=== PATIENT | female | born 1985 | race Caucasian/White ===

== ENCOUNTER 2017-05-25 14:40 | Emergency (ER) | payer MEDICAID, SELFPAY ==
[2017-05-25 14:41] VITALS: BP 124/67; PULSE 95; RESP 20; TEMP 37; O2SAT 95; BMI 29.2
--- NOTE | 2017-05-25 14:52 | CT_ITS ---
CT head/brain wo con Ordering Physician: Talat Gray MD : 31 years: Female HISTORY: ITS.REASON: seizurelike activity . No ongoing nor recent history of seizures TECHNIQUE: Routine axial CT head without contrast. Axial brain and bone windows performed and reviewed. COMPARISON :None FINDINGS No acute intracranial findings. No hemorrhage. No mass. No mass effect. No extra-axial nor subdural collection. The ventricles appear normal. The arredondo and white matter patterns interface appears satisfactory. No mass lesion or mass effect evident. No significant asymmetry. Posterior fossa appears normal. The pineal gland is upper normal in size. With Low-density centrally possibly reflecting a small underlying pineal cyst. Normal variant The CT bone Windows note a tiny 4 mm AP x 2.4 mm with osseous protuberance from the anterior right skull near the coronal suture. Most likely area of benign frontal hyperostosis seen on axial image 33. Unlikely early hyperostosis related to meningioma. No associated mass effect or lesion otherwise here. If there is indeed defined seizure activity initial onset a follow-up postcontrast study would be suggested. MR is more sensitive and would be preferred Incidental right maxillary sinusitis diffuse mild to moderate mucosal thickening right maxillary sinus. Mild ethmoid sinusitis also noted on right greater than left.. Engorgement nasal turbinates with deviation nasal septum to the right IMPRESSION: ......... 1. No acute intracranial findings. No hemorrhage. No mass lesion or mass effect evident. No subdural collection 2. Incidental note Tiny 4 mm AP x 2.4 mm height osseous protuberance on inner table anterior/superior aspect of skull.- Most likely a merely tiny area of developing hyperostosis. Unlikely more significant feature. It *If this patient has new onset of seizures consider follow-up postcontrast study MR which is significantly more sensitive to early abnormalities. 3. Incidental right maxillary sinusitis, with mild ethmoid sinusitis right greater than left.
--- NOTE | 2017-05-25 14:52 | CT_ITS ---
CT cervical spine wo con Ordering Physician: Talat Gray MD Patient Age: 31 years: Female HISTORY: ITS.REASON: possible seizure No ongoing nor recent history of seizures TECHNIQUE: Helical CT scanning performed of the cervical spine with sagittal and coronal and axial reconstructions on CT workstation. COMPARISON :None available FINDINGS The cervical vertebral bodies are intact with no fracture nor subluxation. The disc spaces are well-maintained throughout the facets appear intact with normal relationships.. C1-C2 relationships appear normal. . Nonspecific straightening cervical spine most likely positional although can be reflection of muscle spasm. Prevertebral soft tissues appear normal. . Survey of soft tissues of neck: Thyroid mildly enlarged bilaterally with \scattered thyroid nodules throughout. Possible developing multinodular goiter. Most evident thyroid nodule measuring 9 mm at the posterior right lobe. Incidental note 7.5 mm small air collection right paratracheal region, at the very base the neck axial image 74. Curious feature. Most likely incidental paratracheal air cyst... Trachea itself appears intact with no additional air. Otherwise possibly could reflect Questionable reflects minimal slight upper extension of lung/left formation from blebs at medial right lung apex. Esophagus upper normal thickness. But with no defect evident Apices are included with no pneumothorax, but would note COPD changes, with scattered small blebs. Early COPD changes. Likely significant history of smoking with this appearance. Scattered moderate size nodes throughout the neck. No dominant mass evident on this noncontrast study. Right maxillary sinus with moderate diffuse mucosal thickening, retention cyst at the floor the right maxillary sinus. Cannot exclude a small air-fluid level. Mucosal thickening partially occludes the ostia and infundibulum on the right ostiomeatal complex. . Streak artifact from metallic fillings obscure the teeth question dental caries involving posterior molars. Clinical correlation required. Dental follow-up is suggested ----IMPRESSION-------- 1. C-spine intact. No fracture nor subluxation. 2. Other minor observations in text. ... Tiny 7 mm air collection right paratracheal region suspect a small peritracheal air cyst. No free air otherwise intact ... Scattered moderate most likely reactive nodes throughout the neck ... Right maxillary sinusitis: moderate mucosal thickening retention cyst. ... Thyroid mildly enlarged with probable scattered nodules throughout
--- NOTE | 2017-05-25 15:36 | PC.NURSE ---
1532- WET END TESTER STATES PT HAD ANOTHER SEIZURE LASTED 45 SECONDS. PT WAS CONTRACTED AND FOAMING AT THE MOUTH.
[2017-05-25 15:44] LABS: Basophils # 0.1 K/mm3 (0-0.2); Basophils % 0.5 % (0.1-2.0); Eosinophils # 0.1 K/mm3 (0.0-0.4); Eosinophils % 1.1 % (0.1-12.0); Hematocrit 43.3 % (37.0-47.0); Hemoglobin 14.1 g/dL (12.2-16.2); Lymphocytes # 1.8 K/mm3 (0.7-4.5); Lymphocytes % 18.8 K/mm3 (10-50); Mean Corpuscular HGB Conc 32.5 g/dL (31.8-35.4); Mean Corpuscular Volume 89.3 fl (81-99); Mean Platelet Volume 7.3 fl (7.4-10.4); Monocytes # 0.3 K/mm3 (0.1-1.0); Monocytes % 3.4 % (1.7-9.3); Neutrophils # 7.2 K/mm3 (1.8-7.8); Neutrophils % 76.2 % (37.0-80.0); Platelet Count 311 K/mm3 (142-424); Red Blood Count 4.85 M/mm3 (4.20-5.40); Red Cell Distribution Width 13.1 % (11.5-17.5); White Blood Count 9.5 K/mm3 (4.8-10.8)
[2017-05-25 15:52] LABS: Alanine Aminotransferase 30 U/L (12-78); Albumin Level 4.3 gm/dL (3.4-5.0); Albumin/Globulin Ratio 1.2 (1.1-1.8); Alkaline Phosphatase 96 U/L (46-116); Anion Gap 10.5 mEq/L (5-15); Aspartate Amino Transferase 10 U/L (15-37); Bilirubin,Total 0.3 mg/dL (0.2-1.0); Blood Urea Nitrogen 9 mg/dL (7-18); Calcium 8.8 mg/dL (8.5-10.1); Carbon Dioxide 28 mmol/L (21.0-32.0); Chloride 104 mmol/L (98-107); Creatinine Clearance Estimated 127 mL/min (0-300); Creatinine,Serum 0.78 mg/dL (0.55-1.02); Estimated Glomerular Filt Rate 86 ml/min (>60); GFR (African American) 104 ML/MIN (>60); Globulin 3.5 gm/dl (1.3-3.2); Glucose 128 mg/dL (74-106); Potassium 3.5 mmoL/L (3.5-5.1); Sodium 139 mmol/L (136-145); Total Protein,Serum 7.8 gm/dL (6.4-8.2)
[2017-05-25 17:05] LABS: Microscopic, Urine URINE MICROSCOPIC (MICROSCOPIC)
[2017-05-25 17:08] LABS: Appearance,Urine SL CLOUDY (Clear); Bilirubin,Urine Negative (Negative); Blood, Urine Negative (Negative); Color,Urine YELLOW (Yellow); Glucose,Urine (UA) Negative (Negative); Ketones,Urine Negative (Negative); Leukocyte Esterase,Urine Negative (Negative); Nitrate,Urine Negative (Negative); Protein,Urine Negative (Negative); Specific Gravity, Urine 1.015 (1.005-1.030); Urobilinogen,Urine 0.2 EU/dl (0.2)
[2017-05-25 17:15] LABS: Amphetamine/Metha Screen,Urine Negative ng/mL (<1000); Barbiturates Screen,Urine Negative ng/mL (<200); Benzodiazepines Screen,Urine Negative ng/mL (200); Cannabinoid Screen,Urine Negative ng/mL (<50); Cocaine Screen,Urine Negative ng/g (<300); Methadone Screen,Urine Negative ng/mL (<300); Opiate Screen,Urine Negative ng/mL (<300); Phencyclidine Screen,Urine Negative ng/mL (<25)
--- NOTE | 2017-05-25 17:35 | [facility]H.EDSEIZ ---
ED Disposition Clinical Impression: Epileptic seizure Qualifiers: Epilepsy type: unspecified Disposition: Home, Self-Care Condition on Discharge: Good Instructions: DI for Seizure Disorder -- Adult, DI for Seizure (Not Epilepsy/Seizure Disorder), DI for Seizure Disorder -- Child Additional Instructions: call placed to neurology Referrals: Bryn Ann MD [Primary Care Provider] - - Critical Care Critical Care Time: No Attestation: On 05/25/17, the high probability of a clinically significant, sudden or life threatening deterioration of the following system(s) required my full and direct attention, intervention and personal management. The time I documented below is in addition to time spent performing reported procedures but includes the following listed in this critical care notation. Medical Decision Making Vital Signs: 05/25/17 14:41 Temperature 98.6 F Temperature Source Oral Pulse Rate [Right Radial] 95 H Respiratory Rate 20 Blood Pressure [Right Arm] 124/67 Blood Pressure Mean [Right Arm] 86 Blood Pressure Source [Right Arm] Automatic Cuff Blood Pressure Position [Right Arm] Sitting 02 Sat by Pulse Oximetry 95 Oxygen Delivery Method Room Air - Lab Data Lab Results 05/25/17 15:25: WBC 9.5, RBC 4.85, Hgb 14.1, Hct 43.3, MCV 89.3, MCH 29.0, MCHC 32.5, RDW 13.1, Plt Count 311, MPV 7.3 L, Neut % (Auto) 76.2, Lymph % (Auto) 18.8, [place] % (Auto) 3.4, Eos % (Auto) 1.1, Baso % (Auto) 0.5, Neut # (Auto) 7.2, Lymph # (Auto) 1.8, [place] # (Auto) 0.3, Eos # (Auto) 0.1, Baso # (Auto) 0.1 05/25/17 15:25: Sodium 139, Potassium 3.5, Chloride 104, Carbon Dioxide 28, Anion Gap 10.5, BUN 9, Creatinine 0.78, Estimated Creat Clear 127, Estimated GFR 86, Est GFR ( Amer) 104, Glucose 128 H, Calcium 8.8, Total Bilirubin 0.3, AST 10 L, ALT 30, Alkaline Phosphatase 96, Total Protein 7.8, Albumin 4.3, Globulin 3.5 H, Albumin/Globulin Ratio 1.2 05/25/17 17:00: Urine Color Yellow, Urine Appearance Sl cloudy, Urine pH 7.0, Ur Specific [place] 1.015, Urine Protein Negative, Urine Glucose (UA) Negative, Urine Ketones Negative, Urine Blood Negative, Urine Nitrate Negative, Urine Bilirubin Negative, Urine Urobilinogen 0.2, Ur Leukocyte Esterase Negative, Ur Squamous Epith Cells 3-5 05/25/17 17:00: Urine Opiates Screen Negative, Ur Barbituates Screen Negative, Ur Phencyclidine Scrn Negative, Ur Amphetamines Screen Negative, U Methamphetamines Scrn Negative, U Benzodiazepines Scrn Negative, Urine Cocaine Screen Negative, U Marijuana (THC) Screen Negative Result diagrams: 05/25/17 15:25 05/25/17 15:25 Orders (Tests/Meds): ED MEDICATIONS Discontinued Medications Generic Name Dose Route Start Last Admin Trade Name Freq PRN Reason Stop Dose Admin Phenytoin Sodium 1,000 mg/ 120 mls @ 300 mls/hr 05/25/17 15:38 05/25/17 15:55 Sodium Chloride IV 05/25/17 16:01 300 mls/hr ONCE ONE Administration - Chun Inquiry Pt receiving controlled substance: No Comment: I discussed case with Dr cameron at [facility], he does not feel that shes Seizures HPI - General Chief Complaint: Seizure Stated Complaint: seizure Mode of Arrival: Family Vehicle Limitations: No Limitations Description of Symptoms (Recalled from ER Triage Doc. by RN): pt significant other states that she was at a gas station around 1400 and she went down and her arms were shaking, body was contracted, head bent backwads and pt was foaming at the mouth. this episode lasted roughly 4-5 minutes. pt has been disoriented for about 30 minutes. - History of Present Illness MD complaint: possible seizure - Related Data Home Medications Medication Instructions Recorded Confirmed Buprenorphine HCl/Naloxone HCl 1 each SL DAILY 05/25/17 05/25/17 [Suboxone 4 mg-1 mg Sl Film] Gabapentin [Gabapentin 300mg Cap] 300 mg PO DAILY 05/25/17 05/25/17 Previous Rx's Medication Instructions Recorded levETIRAcetam [Keppra 500mg tablet] 500 mg P
--- NOTE | 2017-05-25 17:38 | ED_ITS ---
ED Disposition Clinical Impression: Epileptic seizure Qualifiers: Epilepsy type: unspecified Disposition: Home, Self-Care Condition on Discharge: Good Instructions: DI for Seizure Disorder -- Adult, DI for Seizure (Not Epilepsy/ Seizure Disorder), DI for Seizure Disorder -- Child Additional Instructions: call placed to neurology Referrals: Bryn Ann MD [Primary Care Provider] - - Critical Care Critical Care Time: No Attestation: On 05/25/17, the high probability of a clinically significant, sudden or life threatening deterioration of the following system(s) required my full and direct attention, intervention and personal management. The time I documented below is in addition to time spent performing reported procedures but includes the following listed in this critical care notation. Medical Decision Making Vital Signs: 05/25/17 14:41 Temperature 98.6 F Temperature Source Oral Pulse Rate [Right Radial] 95 H Respiratory Rate 20 Blood Pressure [Right Arm] 124/67 Blood Pressure Mean [Right Arm] 86 Blood Pressure Source [Right Arm] Automatic Cuff Blood Pressure Position [Right Arm] Sitting 02 Sat by Pulse Oximetry 95 Oxygen Delivery Method Room Air - Lab Data Lab Results 05/25/17 15:25: WBC 9.5, RBC 4.85, Hgb 14.1, Hct 43.3, MCV 89.3, MCH 29.0, MCHC 32.5, RDW 13.1, Plt Count 311, MPV 7.3 L, Neut % (Auto) 76.2, Lymph % (Auto) 18.8, [place] % (Auto) 3.4, Eos % (Auto) 1.1, Baso % (Auto) 0.5, Neut # (Auto) 7.2 , Lymph # (Auto) 1.8, [place] # (Auto) 0.3, Eos # (Auto) 0.1, Baso # (Auto) 0.1 05/25/17 15:25: Sodium 139, Potassium 3.5, Chloride 104, Carbon Dioxide 28, Anion Gap 10.5, BUN 9, Creatinine 0.78, Estimated Creat Clear 127, Estimated GFR 86, Est GFR ( Amer) 104, Glucose 128 H, Calcium 8.8, Total Bilirubin 0.3, AST 10 L, ALT 30, Alkaline Phosphatase 96, Total Protein 7.8, Albumin 4.3, Globulin 3.5 H, Albumin/Globulin Ratio 1.2 05/25/17 17:00: Urine Color Yellow, Urine Appearance Sl cloudy, Urine pH 7.0, Ur Specific [place] 1.015, Urine Protein Negative, Urine Glucose (UA) Negative, Urine Ketones Negative, Urine Blood Negative, Urine Nitrate Negative, Urine Bilirubin Negative, Urine Urobilinogen 0.2, Ur Leukocyte Esterase Negative, Ur Squamous Epith Cells 3-5 05/25/17 17:00: Urine Opiates Screen Negative, Ur Barbituates Screen Negative, Ur Phencyclidine Scrn Negative, Ur Amphetamines Screen Negative, U Methamphetamines Scrn Negative, U Benzodiazepines Scrn Negative, Urine Cocaine Screen Negative, U Marijuana (THC) Screen Negative Result diagrams: 05/25/17 15:25 05/25/17 15:25 Orders (Tests/Meds): ED MEDICATIONS Discontinued Medications Generic Name Dose Route Start Last Admin Trade Name Freq PRN Reason Stop Dose Admin Phenytoin Sodium 1,000 mg/ 120 mls @ 300 mls/hr 05/25/17 15:38 05/25/17 15:55 Sodium Chloride IV 05/25/17 16:01 300 mls/hr ONCE ONE Administration - Chun Inquiry Pt receiving controlled substance: No Comment: I discussed case with Dr cameron at [facility], he does not feel that shes Seizures HPI - General Chief Complaint: Seizure Stated Complaint: seizure Mode of Arrival: Family Vehicle Limitations: No Limitations Description of Symptoms (Recalled from ER Triage Doc. by RN): pt significant other states that she was at a gas station around 1400 and she went down and her arms were shaking, body was contracted, head bent b
[2017-05-25 18:49] VITALS: BP 111/70; PULSE 90; RESP 16; TEMP 36.9; O2SAT 96
== END 2017-05-25 18:51 | disposition home or self-care (01) ==
PROVIDERS: Emergency Provider Family Medicine; Family Provider Internal Medicine Adolescent Medicine; PCP Internal Medicine Adolescent Medicine
DX: G40.909 Epilepsy, unspecified, not intractable, without status epilepticus (principal); F17.210 Nicotine dependence, cigarettes, uncomplicated; Z88.0 Allergy status to penicillin; Z88.2 Allergy status to sulfonamides
CPT/HCPCS: 36415; 70450; 72125; 80053; 80305; 81001; 85025; 93041; 96365; 99282

== ENCOUNTER 2021-11-27 16:56 | Emergency (ER) | payer OTHER, SELFPAY ==
--- NOTE | 2021-11-27 17:16 | PC.NURSE ---
pt having r lower side/abdomen pain since yesterday. VSS bp 118/57, 89HR, 100 RA 98.0 temp. PT aware that at this time we have no beds available and will wait in the lobby until one is available. with pt.
[2021-11-27 17:33] VITALS: BMI 24.0
[2021-11-27 18:04] LABS: Microscopic, Urine URINE MICROSCOPIC (MICROSCOPIC)
[2021-11-27 18:11] LABS: Appearance,Urine SL CLOUDY (Clear); Bilirubin,Urine Negative (Negative); Blood, Urine 1+ (Negative); Color,Urine YELLOW (Yellow); Glucose,Urine (UA) Negative (Negative); Ketones,Urine Negative (Negative); Leukocyte Esterase,Urine 3+ (Negative); Nitrate,Urine POSITIVE (Negative); PH,Urine 5.5 (5.0-8.5); Protein,Urine 1+ (Negative); Urobilinogen,Urine 0.2 EU/dl (0.2)
[2021-11-27 18:28] VITALS: BP 129/69; PULSE 117; RESP 18; TEMP 37.4; O2SAT 99; BMI 24.0
[2021-11-27 18:37] LABS: WBC,Urine 50-100 #/hpf (0-3)
[2021-11-27 18:39] LABS: Bacteria,Urine 1+ /lpf; Yeast,Urine Occasional /lpf
--- NOTE | 2021-11-27 18:45 | PC.NURSE ---
Pt states she just stopped taking her subaxone for 2 days after tapering down for 2 weeks.
--- NOTE | 2021-11-27 18:49 | PC.NURSE ---
calling [facility] to get records, spoke with Rahat SantosObstetrics/Gynecology Nurse
--- NOTE | 2021-11-27 19:18 | CT_ITS ---
PROCEDURE INFORMATION: Exam: CT Abdomen And Pelvis With Contrast Exam date and time: 11/27/2021 7:51 PM Age: 36 years old Clinical indication: Abdominal pain; Acute; Additional info: Right side/abdomen pain TECHNIQUE: Imaging protocol: Computed tomography of the abdomen and pelvis with contrast. Radiation optimization: All CT scans at this facility use at least one of these dose optimization techniques: automated exposure control; mA and/or kV adjustment per patient size (includes targeted exams where dose is matched to clinical indication); or iterative reconstruction. Contrast material: ISOVUE; Contrast volume: 75 ml; Contrast route: IV; COMPARISON: No relevant prior studies available. FINDINGS: Lungs: Clear basilar lung parenchyma. Pleural spaces: No pleural fluid. Heart: Normal heart size. Liver: Normal. No mass. Gallbladder and bile ducts: Exam demonstrates features of prior cholecystectomy. No biliary tree dilation or high-density retained stones appreciated. Pancreas: Normal. No ductal dilation. Spleen: Single calcification noted in the spleen. Spleen measures 11.8 cm. Adrenal glands: Normal. No mass. Kidneys and ureters: There is heterogeneous enhancement of the right kidney. There is no evidence of renal obstruction. No calculus visible on either side. Stomach and bowel: Unremarkable. No obstruction. No mucosal thickening. Appendix: Normal appendix is confirmed. Intraperitoneal space: Unremarkable. No free air. No significant fluid collection. Vasculature: Unremarkable. No abdominal aortic aneurysm. Lymph nodes: Unremarkable. No enlarged lymph nodes. Urinary bladder: Unremarkable as visualized. Reproductive: Recently ruptured right ovarian follicle. Physiologic appearance of the uterus and left ovary. Bones/joints: Unremarkable. No acute fracture. Soft tissues: Unremarkable. IMPRESSION: Exam demonstrates findings of acute pyelonephritis involving the right kidney. There is no evidence intrarenal or perirenal abscess.
[2021-11-27 19:48] LABS: HCG Qualitative, Serum Negative (Negative)
--- NOTE | 2021-11-27 22:05 | PC.NURSE ---
at updating pt and family on POC
[2021-11-27 22:08] LABS: Chloride 101 mmol/L (98-107); Potassium 3.3 mmoL/L (3.5-5.1); Sodium 138 mmol/L (136-145)
[2021-11-27 22:10] LABS: Alanine Aminotransferase 86 U/L (12-78); Aspartate Amino Transferase 79 U/L (14-36); Basophils % 0.4 % (0.1-2.0); Blood Urea Nitrogen 11 mg/dl (7-17); Creatinine Clearance Estimated 130 mL/min (50-200); Eosinophils # 0.1 K/mm3 (0.0-0.4); Eosinophils % 0.5 % (0.1-12.0); Estimated Glomerular Filt Rate 113 ml/min (>60); GFR (African American) 137 ML/MIN (>60); Hematocrit 44.8 % (37.0-47.0); Hemoglobin 13.3 g/dL (12.2-16.2); Lymphocytes # 1.1 K/mm3 (0.7-4.5); Lymphocytes % 10.3 % (10-50); Mean Corpuscular HGB Conc 29.7 g/dL (31.8-35.4); Mean Corpuscular Hemoglobin 28.4 pg (27.0-31.2); Mean Corpuscular Volume 95.7 fl (81-99); Mean Platelet Volume 8.6 fl (7.4-10.4); Monocytes # 0.6 K/mm3 (0.1-1.0); Neutrophils # 9.3 K/mm3 (1.8-7.8); Neutrophils % 83.8 % (37.0-80.0); Platelet Count 334 K/mm3 (142-424); Red Blood Count 4.68 M/mm3 (4.20-5.40); Red Cell Distribution Width 14.4 % (11.5-17.5); White Blood Count 11.1 K/mm3 (4.8-10.8)
[2021-11-27 22:11] LABS: Albumin Level 4.6 g/dl (3.5-5.0); Albumin/Globulin Ratio 1.4 (1.1-1.8); Alkaline Phosphatase 132 U/L (38-126); Anion Gap 12.3 mEq/L (5-15); Bilirubin,Total 0.4 mg/dl (0.2-1.3); Calcium 8.4 mg/dl (8.4-10.2); Carbon Dioxide 28 mmol/L (22.0-30.0); Globulin 3.2 g/dL (1.3-3.2); Glucose 134 mg/dl (74-100); Total Protein,Serum 7.8 g/dl (6.3-8.2)
--- NOTE | 2021-11-27 22:19 | HMH.EDNVD ---
ED Disposition Clinical Impression: Pyelonephritis UTI (urinary tract infection) Qualifiers: Urinary tract infection type: acute pyelonephritis Qualified Code(s): N10 - Acute pyelonephritis Disposition: Home, Self-Care Condition on Discharge: Good Instructions: DI for Urinary Tract Infection (UTI) Additional Instructions: fluids and use meds and call pcp for followup Prescriptions: Ketorolac Tromethamine [Toradol 10mg tablet] 10 mg PO Q6HP PRN #8 tab MDD 40mg/day PRN Reason: Moderate To Severe Pain Transmission Status: Pending to [id number] Referrals: Bryn Ann MD [Primary Care Provider] - - Critical Care Critical Care Time: No Attestation: On 11/27/21, the high probability of a clinically significant, sudden or life threatening deterioration of the following system(s) required my full and direct attention, intervention and personal management. The time I documented below is in addition to time spent performing reported procedures but includes the following listed in this critical care notation. Medical Decision Making - Medical Records Medical records reviewed: Yes: I reviewed the patient's medical records. - Chun Inquiry Pt receiving controlled substance: No Vital Signs: 11/27/21 18:28 Temperature 99.4 F Temperature Source Oral Pulse Rate [Left Radial] 117 H Respiratory Rate 18 Blood Pressure [Right Arm] 129/69 Blood Pressure Mean [Right Arm] 89 02 Sat by Pulse Oximetry 99 Oxygen Delivery Method Room Air - Lab Data Lab results reviewed: Yes: I reviewed the patient's lab results. Lab Results 11/27/21 17:13: Urine Color Yellow, Urine Appearance Sl cloudy, Urine pH 5.5, Ur Specific [place] 1.020, Urine Protein 1+, Urine Glucose (UA) Negative, Urine Ketones Negative, Urine Blood 1+, Urine Nitrate Positive, Urine Bilirubin Negative, Urine Urobilinogen 0.2, Ur Leukocyte Esterase 3+ A, Urine RBC 5-10, Urine WBC 50-100, Ur Squamous Epith Cells 5-10, Urine Bacteria 1+, Urine Yeast Occasional 11/27/21 18:40: Serum HCG, Qual Negative 11/27/21 18:40: WBC 11.1 H, RBC 4.68, Hgb 13.3, Hct 44.8, MCV 95.7, MCH 28.4, MCHC 29.7 L, RDW 14.4, Plt Count 334, MPV 8.6, Neut % (Auto) 83.8 H, Lymph % (Auto) 10.3, [place] % (Auto) 5.0, Eos % (Auto) 0.5, Baso % (Auto) 0.4, Neut # (Auto) 9.3 H, Lymph # (Auto) 1.1, [place] # (Auto) 0.6, Eos # (Auto) 0.1, Baso # (Auto) 0.0 11/27/21 18:40: Sodium 138, Potassium 3.3 L, Chloride 101, Carbon Dioxide 28, Anion Gap 12.3, BUN 11, Creatinine 0.60, Estimated Creat Clear 130, Estimated GFR 113, Est GFR ( Amer) 137, Glucose 134 H, Calcium 8.4, Total Bilirubin 0.4, AST 79 H, ALT 86 H, Alkaline Phosphatase 132 H, Total Protein 7.8, Albumin 4.6, Globulin 3.2, Albumin/Globulin Ratio 1.4 Result diagrams: 11/27/21 18:40 11/27/21 18:40 Orders (Tests/Meds): ED MEDICATIONS Generic Name Dose Route Start Last Admin Trade Name Freq PRN Reason Stop Dose Admin Sodium Chloride 1,000 mls @ 999 mls/hr 11/27/21 21:45 11/27/21 21:39 Sod Chlor 0.9% 1000ml Bag IV 11/27/21 22:45 999 mls/hr .[id number] Administration Sodium Chloride 10 ml 11/27/21 18:47 Sodium Chloride 0.9% 10ml Flush Syringe IV 12/27/21 18:46 NEEDED PRN Maintain IV Site Discontinued Medications Generic Name Dose Route Start Last Admin Trade Name Freq PRN Reason Stop Dose Admin Iopamidol 75 ml 11/27/21 20:02 11/27/21 20:02 Iopamidol-370 (76%);100ml Bottle IV 11/27/21 20:03 75 ml ONCE ONE Administration Sodium Chloride 10 ml 11/27/21 20:02 11/27/21 20:02 Sodium Chloride 0.9% 10ml Syr (Rad Only) IV 11/27/21 20:03 10 ml ONCE ONE Administration ORDERS Category Date Time Status Lactic Acid Stat Lab 11/27/21 22:09 Ordered Blood Culture Stat Micro 11/27/21 22:09 Ordered Urine Culture Stat Micro 11/27/21 17:13 Received - CT Data CT Scan: Abdomen, Pelvis Time Received: 22:[address] Reviewed: Yes: I have viewed the radiologist's inte
--- NOTE | 2021-11-27 22:21 | PC.NURSE ---
Cultures and lactic drawn and sent to lab. Warm blanket and drinks provided. Pt voiced no other needs or complaints at this time.
[2021-11-27 22:35] VITALS: BP 110/66; PULSE 75; RESP 20; TEMP 36.6; O2SAT 98
[2021-11-27 22:42] LABS: Lactic Acid 1.4 mmol/L (0.7-2.1)
== END 2021-11-27 22:41 | disposition home or self-care (01) ==
PROVIDERS: Emergency Medicine; Emergency Provider Emergency Medicine; PCP Internal Medicine Adolescent Medicine
DX: N12 Tubulo-interstitial nephritis, not specified as acute or chronic (principal); F17.210 Nicotine dependence, cigarettes, uncomplicated
CPT/HCPCS: 74177; 80053; 81001; 83605; 84703; 85025; 87040; 87086; 96360; 99284; Q9967